=== PATIENT | female | born 1990 | race Caucasian/White ===

== ENCOUNTER 2021-12-31 08:18 | Emergency (ER) | payer OTHER, SELFPAY ==
[2021-12-31 08:31] VITALS: BP 138/89; PULSE 75; RESP 16; TEMP 36.4; O2SAT 95; BMI 22.6
--- NOTE | 2021-12-31 09:08 | W.ED.GENADLT ---
HPI - General Adult General: Chief complaint: Needlestick/Injury/Exposure Stated complaint: blood exposure Time Seen by Provider: 12/31/21 08:45 Source: patient Mode of arrival: ambulatory Limitations: no limitations History of Present Illness: Patient is a nice 31-year-old female who presents to ED today for Worker's Comp. blood exposure. 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 She states when she removed the gloves she then had blood all over her hands. She states she uses one of her blood covered fingers to check her blood glucose and thus is worried regarding the exposure. There was no needle stick injury. Onset (ago): hour(s) Location: upper extremity (hand/finger) Associated symptoms: Reports no associated symptoms Treatments prior to arrival: other (washing/irrigation) Review of Systems General: Reports: 10 or more systems reviewed and unremarkable except in HPI and below [facility] ED Female Reproductive History: Date of last menstrual period: 12/24/21 Physical Exam Const: COMMON NORMALS: no acute distress, average body habitus, patient oriented x3, no limitations, healthy appearing, alert and well nourished Extremity: COMMON NORMALS: normal to inspection GENERAL: Yes normal exam except as noted Neuro: COMMON NORMALS: patient oriented x3 SENSORIUM/ORIENTATION: Yes alert Skin: NARRATIVE SKIN EXAM: normal skin exam Course Vital Signs: Vital signs: Vital Signs Temperature 97.5 F L 12/31/21 08:31 Pulse Rate 75 12/31/21 08:31 Respiratory Rate 16 12/31/21 08:31 Blood Pressure 138/89 12/31/21 08:31 Pulse Oximetry 95 12/31/21 08:31 MDM - General Adult Medical Decision Making Plan will be for warehouse operations manager to obtain consent and source patient blood after he wakes up from surgery. Patient herself is UTD on immunizations including tetanus. Discussed risk/benefits of HIV PEP and the incredibly low risk given this particular exposure. She would like to delay HIV PEP at this time as we most likely will have source patient results later today. Discussed if we cannot obtain blood or if they test positive for HIV then we can re-evaluate treatment options. Patient agreeable to current plan. Discharge Plan Discharge Patient Disposition: Home Clinical Impression: Exposure to blood Condition: Stable Discharge Orders: Discharge ED (Routine); Ordered 12/31/21 Ordered By: Kat Galindo Patient Instructions: Blood/Body Fluid Exposure - Occupational Activity Restrictions/Additional Instructions: As we discussed please follow-up with Worker's Comp. as directed. If source blood is unable to be obtained or if patient does test positive for HIV please let us know and we can re-evaluate the need for HIV PEP but as this time you have opted to delay treatment. Coding Level of Care Code ED Enlisted Advisor for Nicolle Mendez
[2021-12-31 09:55] LABS: Hepatitis B Surface AB 157.5 (11.5-1000); Hepatitis B Surface Antigen Non-Reactive (Nonreactive); Hepatitis C Virus Antibody Non-Reactive (Nonreactive)
[2021-12-31 10:10] LABS: HIV 1 & 2 Antibody Non-Reactive (Non-Reactiv); HIV 1 & 2 Antigen Non-Reactive (Non-Reactiv)
== END 2021-12-31 09:33 | disposition home or self-care (01) ==
PROVIDERS: Family Medicine; Emergency Provider Physician Assistant
DX: Z77.21 Contact with and (suspected) exposure to potentially hazardous body fluids (principal); Y99.0 Civilian activity done for income or pay
CPT/HCPCS: 36415; 86706; 86803; 87340; 87806; 99283

== ENCOUNTER 2022-03-27 14:32 | Outpatient (CLI) | payer OTHER, SELFPAY ==
[2022-03-27 14:57] LABS: Estmated Average Glucose 146; Hemoglobin A1C 6.7 % (4.0-6.0)
[2022-03-27 15:05] LABS: Anion Gap 13.6 (5-19); Blood Urea Nitrogen 12 mg/dL (6-20); Calcium 9.9 mg/dL (8.5-10.5); Carbon Dioxide 26 mmol/L (22-29); Chloride 101 mmol/L (98-107); Glomerular Filtration Rate 73.5 mL/min (90-130); Glucose 87 mg/dL (65-115); Osmolality Calculated 283 mOsm/kg (285-295); Potassium 3.6 mmol/L (3.5-5.1); Sodium 137 mmol/L (136-145)
== END 2022-03-27 14:33 | disposition home or self-care (01) ==
LOC: LAB 14:33
PROVIDERS: Visit Provider Anesthesiology
DX: Z01.89 Encounter for other specified special examinations (principal)
CPT/HCPCS: 80048; 83036

== ENCOUNTER 2025-01-24 14:44 | Outpatient (CLI) | payer SELFPAY ==
[2025-01-24 15:19] LABS: Hemoglobin 13.60 g/dL (11.27-16.99)
[2025-01-24 15:52] LABS: Albumin Level 4.4 g/dL (3.5-5.2); Alkaline Phosphatase 50 U/L (35-105); Anion Gap 16.5 (5-19); Aspartate Amino Transferase 19 U/L (0-32); Blood Urea Nitrogen 11 mg/dL (6-20); Calcium 9.3 mg/dL (8.5-10.5); Carbon Dioxide 24 mmol/L (22-29); Chloride 100 mmol/L (98-107); Free T4 Free Thyroxine 1.32 ng/dL (0.82-1.77); Globulin 2.7 g/dL (1.3-4.6); Glucose 59 mg/dL (65-115); Osmolality Calculated 281 mOsm/kg (285-295); Potassium 3.5 mmol/L (3.5-5.1); Sodium 137 mmol/L (136-145); Thyroid Stimulating Hormone 2.62 uIU/mL (0.27-4.20); Total Protein 7.1 g/dL (6.6-8.7)
[2025-01-24 16:03] LABS: Alanine Aminotransferase 12 U/L (0-33)
== END 2025-01-24 14:45 | disposition home or self-care (01) ==
LOC: LAB 14:46
PROVIDERS: Visit Provider Physician Assistant
DX: E10.9 Type 1 diabetes mellitus without complications (principal)
CPT/HCPCS: 36415; 80053; 84439; 84443; 85018